=== PATIENT | male | born 1995 | race Caucasian/White ===

== ENCOUNTER 2022-03-19 14:17 | Outpatient (CLI) | payer MEDICARE, MEDICAID | END 2022-03-19 23:59 | disposition home or self-care (01) | LOC: LAB.N 14:17 | PROVIDERS: ATTEND Nurse Practitioner | DX: U07.1 COVID-19 (principal) | CPT/HCPCS: 86769 ==

== ENCOUNTER 2024-03-29 14:10 | Outpatient (CLI) | payer MEDICARE, MEDICAID | END 2024-03-29 23:59 | disposition short-term general hospital (02) | LOC: EMS 14:10 | DX: R56.9 Unspecified convulsions (principal) | CPT/HCPCS: A0425; A0429; A0888 ==